=== PATIENT | female | born 1950 | race African-American/Black ===

== ENCOUNTER 2016-10-19 02:17 | Observation (INO) | payer OTHER, MEDICAID ==
[~2016-10-19] VITALS: Ht 165.1 cm; Wt 114.3 kg
[~2016-10-19 02:17] MED LIST: ATEN100T; CARVEDILOL; INSULIN; LASIX
[2016-10-19] MEDS ORDERED: FUROSEMIDE 40MG/4ML VIAL IV STA (03:10)
[2016-10-19 03:45] LABS: BASOPHILS % 0.7 % (0.0-2.0); EOSINOPHILS % 5.7 % (0.0-5.0); HEMATOCRIT. 42.9 % (36.0-48.0); HEMOGLOBIN. 14.1 g/dL (12.0-16.0); LYMPHOCYTES % 43.9 % (20.0-50.0); MEAN CORPUSCULAR HEMOGLOBIN 26.4 pg (28.0-32.0); MEAN CORPUSCULAR VOLUME 80.4 fL (81.0-99.0); MEAN PLATELET VOLUME 9.3 fl (7.4-10.4); MONOCYTES % 10.9 % (2.0-8.0); NEUTROPHILS % 38.8 % (40.0-76.0); PLATELET 201 x1000/uL (130-400); RED BLOOD CELL COUNT 5.34 mill/uL (4.2-5.4)
[2016-10-19 03:57] LABS: CARBON DIOXIDE 31 mEq/L (21-32); CHLORIDE 105 mEq/L (98-107); TROPONIN I < 0.02 ng/mL (0.00-0.04)
[2016-10-19] MEDS ORDERED: MORPHINE SULFATE 4 MG/ML CPJ (NOT FOR IM USE) IV ONE ×2 (04:15→07:00)
[2016-10-19] MEDS ORDERED: ONDANSETRON HCL 4MG/2ML VIAL IV ONE (04:45)
[2016-10-19 08:00] VITALS: BP 127/87
[2016-10-19 10:18] VITALS: BP 127/87
[2016-10-19] MEDS ORDERED: OXYB5TAB11 PO (11:56)
[2016-10-19] MEDS ORDERED: AMLO10TA80 PO (11:56)
[2016-10-19] MEDS ORDERED: FURO-151 PO (11:56)
[2016-10-19] MEDS ORDERED: OXYC30TA89 PO (11:56)
[2016-10-19] MEDS ORDERED: METF500T4 PO (11:56)
[2016-10-19] MEDS ORDERED: ATEN100T PO (11:56)
[2016-10-19] MEDS ORDERED: ONE A DAY WOMEN PO (11:56)
[2016-10-19 12:00] VITALS: BP 142/89
[2016-10-19] MEDS ORDERED: IPRATROPIUM/ALBUTEROL 0.5-3(2.5)MG/3ML NEB INH PRN (13:15)
[2016-10-19] MEDS ORDERED: ENOXAPARIN 40MG/0.4ML SYR SUBCUT SCH (13:15)
[2016-10-19] MEDS ORDERED: ACETAMINOPHEN 325MG TABLET PO PRN (13:15)
[2016-10-19] MEDS ORDERED: FUROSEMIDE 40MG/4ML VIAL IV SCH (13:15)
[2016-10-19] MEDS ORDERED: ONDANSETRON HCL 4MG/2ML VIAL IV PRN (13:15)
[2016-10-19] MEDS ORDERED: CLONIDINE 0.1MG TABLET PO PRN (13:15)
[2016-10-19] MEDS ORDERED: ASPIRIN 81MG EC TABLET PO SCH (13:30)
[2016-10-19] MEDS ORDERED: DOCUSATE SODIUM 100MG CAPSULE PO PRN (14:00)
[2016-10-19] MEDS ORDERED: ASPIRIN 81MG EC TABLET PO ONE (14:07)
[2016-10-19] MEDS ORDERED: CARVEDILOL 3.125 MG TABLET ONE (14:08)
[2016-10-19] MEDS ORDERED: ENOXAPARIN 40MG/0.4ML SYR SUBCUT ONE (14:10)
[2016-10-19] MEDS ORDERED: FUROSEMIDE 40MG/4ML VIAL ONE (14:17)
[2016-10-19] MEDS: LOSARTAN POTASSIUM 50 MG TABLET PO SCH (14:52)
[2016-10-19] MEDS: CARVEDILOL 3.125 MG TABLET PO SCH ×2 (14:56→20:53)
[2016-10-19 16:00] VITALS: BP 138/96
[2016-10-19] MEDS ORDERED: DEXTROSE 50% WATER 50ML SYRINGE IV PRN (16:15)
[2016-10-19] MEDS ORDERED: RIVA20TA PO (16:20)
[2016-10-19 16:50] LABS: CREATINE KINASE 158 IU/L (26-192); TROPONIN I < 0.02 ng/mL (0.00-0.04)
[2016-10-19] MEDS ORDERED: METFORMIN HCL 500MG TABLET PO SCH (17:00)
[2016-10-19] MEDS: INSULIN LISPRO 100 UNITS/ML SUBCUT SCH ×2 (17:15→21:00)
[2016-10-19] MEDS: METFORMIN HCL 500MG TABLET PO SCH (17:33)
[2016-10-19] MEDS: OXYBUTYNIN CHLORIDE 5MG TABLET PO SCH (17:33)
[2016-10-19] MEDS: BLOOD SUGAR DIAGNOSTIC STRIP TEST SCH ×2 (17:34→21:29)
[2016-10-19 20:00] VITALS: BP 116/77
[2016-10-19] MEDS: OXYCODONE HCL 10MG TABLET SR 12HR PO SCH (21:44)
[2016-10-19] MEDS: DIAZEPAM 5 MG TABLET PO SCH (21:44)
[2016-10-19] MEDS ORDERED: DIAZ10TA PO (21:53)
[2016-10-20] VITALS: BP 97/78
[2016-10-20 00:35] LABS: CREATINE KINASE 158 IU/L (26-192); TROPONIN I < 0.02 ng/mL (0.00-0.04)
[2016-10-20 04:00] VITALS: BP 109/75
[2016-10-20] MEDS: OXYCODONE HCL 10MG TABLET SR 12HR PO SCH ×2 (06:36→14:00)
[2016-10-20] MEDS: OXYBUTYNIN CHLORIDE 5MG TABLET PO SCH ×2 (06:36→17:32)
[2016-10-20] MEDS: METFORMIN HCL 500MG TABLET PO SCH ×2 (06:36→17:32)
[2016-10-20] MEDS: BLOOD SUGAR DIAGNOSTIC STRIP TEST SCH ×3 (06:37→17:34)
[2016-10-20] MEDS: INSULIN LISPRO 100 UNITS/ML SUBCUT SCH ×3 (06:37→17:15)
[2016-10-20 06:54] LABS: BASOPHILS % 0.5 % (0.0-2.0); EOSINOPHILS % 5.3 % (0.0-5.0); HEMATOCRIT. 39.5 % (36.0-48.0); HEMOGLOBIN. 12.9 g/dL (12.0-16.0); LYMPHOCYTES % 33.4 % (20.0-50.0); MEAN CORPUSCULAR HEMOGLOBIN 26.5 pg (28.0-32.0); MEAN CORPUSCULAR VOLUME 81.4 fL (81.0-99.0); MEAN PLATELET VOLUME 9.6 fl (7.4-10.4); MONOCYTES % 11.8 % (2.0-8.0); PLATELET 187 x1000/uL (130-400); RED BLOOD CELL COUNT 4.85 mill/uL (4.2-5.4); RED CELL DISTRIBUTION WIDTH 15.3 % (11.6-14.6)
[2016-10-20 07:04] LABS: CARBON DIOXIDE 31 mEq/L (21-32); CHLORIDE 102 mEq/L (98-107); LDL CHOLESTEROL 98 mg/dL (5-100)
[2016-10-20 07:12] LABS: HDL CHOLESTEROL 46 mg/dL (40-59)
[2016-10-20 08:00] VITALS: BP 112/74
[2016-10-20] MEDS ORDERED: FUROSEMIDE 40MG TABLET PO SCH (09:00)
[2016-10-20] MEDS: LOSARTAN POTASSIUM 50 MG TABLET PO SCH (09:16)
[2016-10-20] MEDS: DIAZEPAM 5 MG TABLET PO SCH (09:17)
[2016-10-20 12:00] VITALS: BP 106/64
[2016-10-20 15:33] VITALS: BP 106/64
[2016-10-20 16:00] VITALS: BP 101/65
[2016-10-20] MEDS ORDERED: RIVAROXABAN 20 MG TABLET PO SCH (17:00)
== END 2016-10-20 18:24 | disposition home or self-care (01) ==
LOC: ER 02:17 → 5WST 05:32 → INTOOBSV 05:32 → EDBEDREQTM 05:32 → EDBEDREQ 05:32 → ENRESERV 08:00
PROVIDERS: ADMIT Internal Medicine; ATTEND Internal Medicine
DX: I11.0 Hypertensive heart disease with heart failure (principal); I50.9 Heart failure, unspecified; E11.9 Type 2 diabetes mellitus without complications; R60.0 Localized edema; E78.5 Hyperlipidemia, unspecified; G47.30 Sleep apnea, unspecified; Z72.0 Tobacco use
CPT/HCPCS: 36415; 71010; 80053; 80061; 82550; 82962; 83880; 84443; 84484; 85025; 93005; 93306; 93970; 96372; 96374; 96375; 96376; 99285; G0378; J1650; J1940; J2270; J2405

== ENCOUNTER 2022-10-06 18:02 | Inpatient (IN) | payer MEDICARE, MEDICAID ==
[~2022-10-06] VITALS: Ht 167.6 cm; Wt 86.0 kg
[~2022-10-06 18:02] MED LIST changes: +AMLO5TAB4 MT; +ASPI-1497 MT; -ATEN100T; -CARVEDILOL; +DIAZ10TA PO; +FURO-151 PO; +HYDR-4135 MT; -INSULIN; -LASIX; +LEVO-65 MT; +LIP40 MT; +METF-414 PO; +ONE A DAY WOMEN PO; +OXYB5TAB16 PO; +OXYC-582 PO
[2022-10-06 19:29] LABS: BASOPHILS % 0.6 % (0.0-2.0); EOSINOPHILS % 6.7 % (0.0-5.0); HEMATOCRIT. 42.8 % (36.0-48.0); LYMPHOCYTES % 40.9 % (20.0-50.0); MEAN CORPUSCULAR HEMOGLOBIN 26.6 pg (28.0-32.0); MEAN CORPUSCULAR VOLUME 81.4 fL (81.0-99.0); MONOCYTES % 10.3 % (2.0-8.0); NEUTROPHILS % 41.5 % (40.0-76.0); RED BLOOD CELL COUNT 5.25 mill/uL (4.2-5.4); RED CELL DISTRIBUTION WIDTH 14.7 % (11.6-14.6)
[2022-10-06 19:36] LABS: CHLORIDE 106 mEq/L (98-107)
[2022-10-06] MEDS ORDERED: LABETALOL 5MG/ML SYR 20 MG/4 ML SYRINGE IV ONE (22:00)
[2022-10-07] VITALS (7 sets, daily range): BP systolic 149–165; BP diastolic 86–90; PULSE 51–67; RESP 16–20; TEMP 97–100.4
[2022-10-07] MEDS ORDERED: CLONIDINE 0.1MG TABLET PO NR (01:15)
[2022-10-07] MEDS: GABAPENTIN 300MG CAPSULE PO SCH ×4 (01:17→22:00)
[2022-10-07] MEDS ORDERED: DEXTROSE 50% WATER 50ML SYRINGE IV PRN (04:15)
[2022-10-07] MEDS: BLOOD SUGAR DIAGNOSTIC STRIP TEST SCH ×4 (06:42→21:00)
[2022-10-07] MEDS: INSULIN LISPRO 100 UNITS/ML SUBCUT SCH ×4 (06:46→21:00)
[2022-10-07] MEDS: AMLODIPINE 5MG TABLET PO SCH (08:18)
[2022-10-07] MEDS: LIDOCAINE 5% PATCH TOP SCH (08:21)
[2022-10-07] MEDS: HEPARIN 5000 UNITS/ML VIAL SUBCUT SCH ×2 (08:44→20:58)
[2022-10-07] MEDS ORDERED: ASPIRIN 81MG TABLET PO SCH (09:00)
[2022-10-07 16:17] LABS: BASOPHILS % 0.6 % (0.0-2.0); EOSINOPHILS % 4.6 % (0.0-5.0); HEMATOCRIT. 39.9 % (36.0-48.0); LYMPHOCYTES % 37.7 % (20.0-50.0); MEAN CORPUSCULAR HEMOGLOBIN 26.8 pg (28.0-32.0); MEAN CORPUSCULAR VOLUME 82.2 fL (81.0-99.0); MEAN PLATELET VOLUME 9.4 fl (7.4-10.4); MONOCYTES % 13.2 % (2.0-8.0); NEUTROPHILS % 43.9 % (40.0-76.0); PLATELET 131 x1000/uL (130-400); RED BLOOD CELL COUNT 4.85 mill/uL (4.2-5.4); RED CELL DISTRIBUTION WIDTH 14.7 % (11.6-14.6)
[2022-10-07 16:24] LABS: CHLORIDE 105 mEq/L (98-107)
[2022-10-07 16:31] LABS: HDL CHOLESTEROL 57 mg/dL (40-59); LDL CHOLESTEROL 113 mg/dL (5-100)
[2022-10-07] MEDS: ATORVASTATIN CALCIUM 40MG TABLET PO SCH (20:56)
[2022-10-08] VITALS: BP 142/82; PULSE 59; RESP 18; TEMP 96.6
[2022-10-08 04:00] VITALS: BP 155/75; PULSE 75; RESP 19; TEMP 97.7
[2022-10-08] MEDS: GABAPENTIN 300MG CAPSULE PO SCH ×3 (05:54→21:18)
[2022-10-08 06:12] LABS: BASOPHILS % 0.3 % (0.0-2.0); EOSINOPHILS % 6.2 % (0.0-5.0); HEMATOCRIT. 40.1 % (36.0-48.0); HEMOGLOBIN. 13.1 g/dL (12.0-16.0); LYMPHOCYTES % 42.8 % (20.0-50.0); MEAN CORPUSCULAR HEMOGLOBIN 26.9 pg (28.0-32.0); MEAN CORPUSCULAR VOLUME 82.4 fL (81.0-99.0); MEAN PLATELET VOLUME 9.8 fl (7.4-10.4); NEUTROPHILS % 38.7 % (40.0-76.0); PLATELET 147 x1000/uL (130-400); RED BLOOD CELL COUNT 4.87 mill/uL (4.2-5.4); RED CELL DISTRIBUTION WIDTH 14.9 % (11.6-14.6)
[2022-10-08] MEDS: INSULIN LISPRO 100 UNITS/ML SUBCUT SCH ×3 (07:00→21:00)
[2022-10-08 08:00] VITALS: BP 159/97; PULSE 88; RESP 18; TEMP 97.5
[2022-10-08] MEDS: BLOOD SUGAR DIAGNOSTIC STRIP TEST SCH ×3 (08:24→21:00)
[2022-10-08] MEDS: HEPARIN 5000 UNITS/ML VIAL SUBCUT SCH ×2 (09:40→21:14)
[2022-10-08] MEDS: LIDOCAINE 5% PATCH TOP SCH (09:41)
[2022-10-08] MEDS: AMLODIPINE 5MG TABLET PO SCH (09:41)
[2022-10-08] MEDS: HYDRALAZINE HCL 25MG TABLET PO SCH ×2 (11:08→21:17)
[2022-10-08 12:00] VITALS: BP 150/81; PULSE 59; RESP 18; TEMP 97.5
[2022-10-08 16:00] VITALS: BP 148/82; PULSE 60; RESP 20; TEMP 97.5
[2022-10-08 20:00] VITALS: BP 172/91; PULSE 61; RESP 17; TEMP 97.5
[2022-10-08] MEDS: ATORVASTATIN CALCIUM 40MG TABLET PO SCH (21:14)
[2022-10-09] VITALS: BP 136/93; PULSE 75; RESP 18; TEMP 96.3
[2022-10-09 04:00] VITALS: BP 168/88; PULSE 60; RESP 18; TEMP 95.2
[2022-10-09] MEDS: GABAPENTIN 300MG CAPSULE PO SCH ×3 (06:57→21:25)
[2022-10-09] MEDS: BLOOD SUGAR DIAGNOSTIC STRIP TEST SCH ×4 (07:20→21:26)
[2022-10-09] MEDS: INSULIN LISPRO 100 UNITS/ML SUBCUT SCH ×4 (07:50→21:00)
[2022-10-09 08:00] VITALS: BP 178/91; PULSE 59; RESP 19; TEMP 97.5
[2022-10-09] MEDS: LIDOCAINE 5% PATCH TOP SCH (09:00)
[2022-10-09] MEDS: HYDRALAZINE HCL 25MG TABLET PO SCH (09:51)
[2022-10-09] MEDS: AMLODIPINE 10MG TABLET PO SCH (09:52)
[2022-10-09] MEDS: HEPARIN 5000 UNITS/ML VIAL SUBCUT SCH ×2 (09:53→21:26)
[2022-10-09] MEDS ORDERED: HYDRALAZINE 20MG/ML VIAL IV PRN (11:00)
[2022-10-09] MEDS ORDERED: HYDRALAZINE 10 MG in SODIUM CHLORIDE 0.9% 49.5 ML IV PRN (11:00)
[2022-10-09 12:00] VITALS: BP 148/97; PULSE 64; RESP 19; TEMP 98.1
[2022-10-09 14:01] LABS: BASOPHILS % 0.4 % (0.0-2.0); HEMOGLOBIN. 14.5 g/dL (12.0-16.0); LYMPHOCYTES % 41.4 % (20.0-50.0); MEAN CORPUSCULAR HEMOGLOBIN 26.9 pg (28.0-32.0); MEAN CORPUSCULAR VOLUME 81.7 fL (81.0-99.0); MEAN PLATELET VOLUME 10.3 fl (7.4-10.4); MONOCYTES % 11.9 % (2.0-8.0); NEUTROPHILS % 40.3 % (40.0-76.0); PLATELET 133 x1000/uL (130-400); RED BLOOD CELL COUNT 5.38 mill/uL (4.2-5.4); RED CELL DISTRIBUTION WIDTH 15.3 % (11.6-14.6)
[2022-10-09] MEDS: HYDRALAZINE HCL 50MG TABLET PO SCH ×2 (14:16→21:26)
[2022-10-09 14:18] LABS: CHLORIDE 104 mEq/L (98-107)
[2022-10-09 16:00] VITALS: BP 147/87; PULSE 97; RESP 18; TEMP 98.4
[2022-10-09 20:00] VITALS: BP 134/79; PULSE 105; RESP 18; TEMP 98.5
[2022-10-09] MEDS: ATORVASTATIN CALCIUM 40MG TABLET PO SCH (21:26)
[2022-10-09] MEDS: ACETAMINOPHEN 325MG TABLET PO PRN (21:26)
[2022-10-10] VITALS: BP 116/59; PULSE 20; RESP 20; TEMP 98.2
[2022-10-10 04:00] VITALS: BP 126/79; PULSE 84; RESP 19; TEMP 97.5
[2022-10-10] MEDS: HYDRALAZINE HCL 50MG TABLET PO SCH ×3 (06:39→21:02)
[2022-10-10] MEDS: GABAPENTIN 300MG CAPSULE PO SCH ×3 (06:39→21:02)
[2022-10-10] MEDS: BLOOD SUGAR DIAGNOSTIC STRIP TEST SCH ×4 (07:20→20:32)
[2022-10-10] MEDS: INSULIN LISPRO 100 UNITS/ML SUBCUT SCH ×4 (07:49→20:55)
[2022-10-10 08:00] VITALS: BP 153/68; PULSE 82; RESP 18; TEMP 97.9
[2022-10-10] MEDS: AMLODIPINE 10MG TABLET PO SCH (09:22)
[2022-10-10] MEDS: HEPARIN 5000 UNITS/ML VIAL SUBCUT SCH ×2 (09:23→20:28)
[2022-10-10] MEDS: LIDOCAINE 5% PATCH TOP SCH (09:24)
[2022-10-10 12:00] VITALS: BP 134/77; PULSE 88; RESP 17; TEMP 97.3
[2022-10-10 16:00] VITALS: BP 132/68; PULSE 85; RESP 17; TEMP 97.6
[2022-10-10 20:00] VITALS: BP 141/86; PULSE 92; RESP 20; TEMP 97.9
[2022-10-10] MEDS: ATORVASTATIN CALCIUM 40MG TABLET PO SCH (20:29)
[2022-10-10] MEDS: ACETAMINOPHEN 325MG TABLET PO PRN (21:02)
[2022-10-11] VITALS: BP 137/73; PULSE 75; RESP 20; TEMP 97.8
[2022-10-11 04:00] VITALS: BP 150/89; PULSE 58; RESP 20; TEMP 98
[2022-10-11] MEDS: GABAPENTIN 300MG CAPSULE PO SCH ×3 (06:21→20:55)
[2022-10-11] MEDS: HYDRALAZINE HCL 50MG TABLET PO SCH ×3 (06:21→20:55)
[2022-10-11] MEDS: BLOOD SUGAR DIAGNOSTIC STRIP TEST SCH ×4 (07:20→21:31)
[2022-10-11] MEDS: INSULIN LISPRO 100 UNITS/ML SUBCUT SCH ×4 (07:39→21:31)
[2022-10-11 08:00] VITALS: BP 144/73; PULSE 86; RESP 19; TEMP 97.7
[2022-10-11] MEDS: LIDOCAINE 5% PATCH TOP SCH (09:00)
[2022-10-11] MEDS: AMLODIPINE 10MG TABLET PO SCH (10:33)
[2022-10-11] MEDS: HEPARIN 5000 UNITS/ML VIAL SUBCUT SCH ×2 (10:34→20:42)
[2022-10-11 12:00] VITALS: BP 131/75; PULSE 87; RESP 19; TEMP 97.9
[2022-10-11 16:00] VITALS: BP 133/79; PULSE 94; RESP 20; TEMP 99.1
[2022-10-11 20:00] VITALS: BP 147/84; PULSE 99; RESP 18; TEMP 98.8
[2022-10-11] MEDS: ATORVASTATIN CALCIUM 40MG TABLET PO SCH (20:42)
[2022-10-11] MEDS: ACETAMINOPHEN 325MG TABLET PO PRN (20:54)
[2022-10-12] VITALS: BP 123/68; PULSE 93; RESP 18; TEMP 98.5
[2022-10-12 04:00] VITALS: BP 141/76; PULSE 72; RESP 19; TEMP 97.8
[2022-10-12] MEDS: GABAPENTIN 300MG CAPSULE PO SCH ×2 (05:54→14:21)
[2022-10-12] MEDS: HYDRALAZINE HCL 50MG TABLET PO SCH ×2 (05:54→14:23)
[2022-10-12 08:00] VITALS: BP 136/73; PULSE 94; RESP 18; TEMP 98.6
[2022-10-12] MEDS: INSULIN LISPRO 100 UNITS/ML SUBCUT SCH ×3 (09:00→17:36)
[2022-10-12] MEDS: LIDOCAINE 5% PATCH TOP SCH (09:00)
[2022-10-12] MEDS: AMLODIPINE 10MG TABLET PO SCH (09:36)
[2022-10-12] MEDS: HEPARIN 5000 UNITS/ML VIAL SUBCUT SCH (09:37)
[2022-10-12 12:00] VITALS: BP 124/80; PULSE 90; RESP 18; TEMP 98.7
[2022-10-12 16:00] VITALS: BP 114/84; PULSE 79; RESP 18; TEMP 98
[2022-10-12] MEDS: BLOOD SUGAR DIAGNOSTIC STRIP TEST SCH (17:20)
[2022-10-12 18:08] VITALS: BP 124/80; PULSE 97; TEMP 98.7; O2SAT 97
== END 2022-10-12 18:30 | DRG 552 ==
LOC: ER 18:23 → EDBEDREQTM 22:29 → EDBEDREQ 22:29 → 4WST 10-07 03:45 → 6EST 10-08 17:55 → UNDODISIN 10-12 12:00
PROVIDERS: ADMIT Internal Medicine; ATTEND Internal Medicine
DX: M48.061 Spinal stenosis, lumbar region without neurogenic claudication (principal); F03.90 Unspecified dementia, unspecified severity, without behavioral disturbance, psychotic disturbance, mood disturbance, and anxiety; E87.6 Hypokalemia; I10 Essential (primary) hypertension; E11.9 Type 2 diabetes mellitus without complications; M47.892 Other spondylosis, cervical region; M47.896 Other spondylosis, lumbar region; G89.29 Other chronic pain; Z79.4 Long term (current) use of insulin
CPT/HCPCS: 36415; 72141; 72148; 80048; 80053; 80061; 82962; 83036; 85025; 97162; 99285; J0360; J1644; J1815; J3490